=== PATIENT | female | born 1985 | race Caucasian/White ===

== ENCOUNTER 2018-01-11 12:13 | Emergency (ER) | payer OTHER ==
[2018-01-11 12:22] VITALS: BP 134/78
[2018-01-11 12:57] LABS: BILIRUBIN,URINE NEGATIVE (NEGATIVE); GLUCOSE, URINE (UA) NEGATIVE (NEGATIVE); KETONES,URINE (UA) NEGATIVE (NEGATIVE); LEUKOCYTE ESTERASE, URINE TRACE (NEGATIVE); NITRITE,URINE POSITIVE (NEGATIVE); OCCULT BLOOD,URINE NEGATIVE (NEGATIVE); PH,URINE 5.5 PH (5.0-7.5); PROTEIN,URINE TRACE mg/dL (NEGATIVE); UROBILINOGEN,URINE 1 (NORMAL) E.U./dL (NORMAL)
[2018-01-11 12:59] LABS: CLARITY,URINE CLEAR (CLEAR); HCG UR QUAL NEGATIVE
[2018-01-11 13:30] LABS: BACTERIA,URINE Rare /HPF (None Seen); RBC,URINE 0-5 /HPF (0-5); SQUAMOUS EPITHELIAL CELL,UR RARE Squamous (<= Few); WBC CLUMPS,URINE PRESENT
--- NOTE | 2018-01-11 13:42 | ED Physician Documentation ---
PD HPI FEMALE - Stated complaint Stated Complaint: FEMALE /CHILLS/NAUSEA - Chief complaint Chief Complaint: Abd Pain - History obtained from History obtained from: Patient, Family - History of Present Illness Timing - onset: How many days ago (4) Timing - duration: Days (4) Timing - details: Gradual onset, Still present Associated symptoms: Dysuria, Urinary frequency. No: Vaginal discharge Contributing factors: No: Similar symptoms before: Diagnosis (UTI/bv/yeast) Recently seen: Not recently seen - Additional information Additional information: 32-year-old female who is trying to get has developed urinary urgency frequency and dysuria over the past 4 days. She has some chills associated with this she does not have any overt fever she had some mild nausea she has not vomited and she does have some nasal congestion cough and ear pain. Review of Systems Constitutional: reports: Chills, Fatigue. denies: Fever Eyes: denies: Decreased vision Ears: reports: Ear pain Nose: reports: Rhinorrhea / runny nose, Congestion Throat: denies: Sore throat Cardiac: denies: Chest pain / pressure, Palpitations Respiratory: reports: Cough. denies: Dyspnea GI: reports: Abdominal Pain, Nausea. 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 - Present Medications Home Medications: Ambulatory Orders Medication Instructions Recorded Confirmed Amox/Clav 875/125 [Augmentin] 1 each PO Q12H #14 tablet 01/11/18 Pnv No.122/Iron/Folic Acid 1 each PO DAILY 01/11/18 01/11/18 [ Multi Tablet] - Allergies Allergies/Adverse Reactions: Allergies Allergy/AdvReac Type Severity Reaction Status Date / Time No Known Drug Allergies Allergy Verified 01/11/18 12:22 - Social History Does the pt smoke?: No Smoking Status: Never smoker Does the pt drink ETOH?: No Does the pt have substance abuse?: No PD ED PE NORMAL - Vitals Vital signs reviewed: Yes (hypertensive ) - General General: Alert and oriented X 3, No acute distress, Well developed/nourished - HEENT HEENT: Atraumatic, PERRL, EOMI, Other (The right TM is inflamed with rounding of the umbo and the left is minimally inflamed. ) - Neck Neck: Supple, no meningeal sign, No bony TTP - Cardiac Cardiac: RRR, No murmur - Respiratory Respiratory: No respiratory distress, Clear bilaterally - Abdomen Abdomen: Soft, Non tender - Back Back: No CVA TTP, No spinal TTP - Derm Derm: Normal color, Warm and dry, No rash - Extremities Extremities: No deformity, No edema - Neuro Neuro: Alert and oriented X 3, mortgage analyst 2-12 intact, No motor deficit, No sensory d eficit, Normal speech Eye Opening: Spontaneous Motor: Obeys Commands Verbal: Oriented GCS Score: 15 - Psych Psych: Normal mood, Normal affect Results - Vitals Vitals: Vital Signs - 24 hr 01/11/18 12:18 Temperature 36.5 C Heart Rate 95 Respiratory 18 Rate Blood Pressure 134/78 H O2 Saturation 98 Oxygen O2 Source Room air - Labs Labs: Laboratory Tests 01/11/18 12:24 Urine Color ORANGE Urine Clarity CLEAR Urine pH 5.5 Ur Specific [place] 1.010 Urine Protein TRACE Urine Glucose (UA) NEGATIVE Urine Ketones NEGATIVE Urine Occult Blood NEGATIVE Urine Nitrite POSITIVE H Urine Bilirubin NEGATIVE Urine Urobilinogen 1 (NORMAL) Ur Leukocyte Esterase TRACE H Urine RBC 0-5 Urine WBC >25 H Urine WBC Clumps PRESENT Ur Squamous Epith Cells RARE Squamous Urine Bacteria Rare Ur Microscopic Review INDICATED Urine Culture Comments INDICATED Urine HCG, Qual NEGATIVE PD MEDICAL DECISION MAKING - ED course Complexity details: reviewed results, re-evaluated patient, considered differential, d/w patient, d/w family ED course: 32-year-old female with symptoms of chills urinary urgency and frequency has urinary tract infection on examination she does not have any flank tenderness and she does have right otitis on exam. Departure - Departure Disposition: 01 Home, Self Care Clinical Impression: Urinary tract infection Qualifiers: Urinary tract infection type: acute cystitis Hematuria presence: without hematuria Qualified Code(s): N30.00 - Acute cystitis without hematuria Otitis media Qualifiers: Otitis media type: suppurative Chronicity: acute Laterality: right Recurrence: not specified as recurrent Spontaneous tympanic membrane rupture: without spontaneous rupture Qualified Code(s): H66.001 - Acute suppurative otitis media without spontaneous rupture of ear drum, right ear Instructions: ED UTI Cystitis Female, ED Otitis Media Acute Adult [facility] Prescriptions: Amox/Clav 875/125 [Augmentin] 1 each PO Q12H #14 tablet
== END 2018-01-11 14:00 | disposition home or self-care (01) ==
LOC: ED 12:13
DX: N30.00 Acute cystitis without hematuria (principal); H66.001 Acute suppurative otitis media without spontaneous rupture of ear drum, right ear
CPT/HCPCS: 81001; 81003; 81025; 87086; 99283

== ENCOUNTER 2018-01-30 09:51 | Emergency (ER) | payer OTHER ==
[2018-01-30 12:17] LABS: BILIRUBIN,URINE NEGATIVE (NEGATIVE); GLUCOSE, URINE (UA) NEGATIVE (NEGATIVE); KETONES,URINE (UA) NEGATIVE (NEGATIVE); LEUKOCYTE ESTERASE, URINE NEGATIVE (NEGATIVE); NITRITE,URINE NEGATIVE (NEGATIVE); OCCULT BLOOD,URINE NEGATIVE (NEGATIVE); PROTEIN,URINE NEGATIVE (NEGATIVE); UROBILINOGEN,URINE 0.2 (NORMAL) E.U./dL (NORMAL)
[2018-01-30 12:19] LABS: CLARITY,URINE CLEAR (CLEAR); HCG UR QUAL NEGATIVE
--- NOTE | 2018-01-30 14:41 | ED Physician Documentation ---
History of Present Illness - Stated complaint Stated Complaint: FEMALE - Chief complaint Chief Complaint: General - History obtained from History obtained from: Patient - History of Present Illness Timing: Today Pain level max: 4 Pain level now: 4 - Additonal information Additional information: Patient is a 32-year-old female who is trying to get with her , she states that she has had intermittent pelvic pain once a month for the past 6 months. Has been treated for bacterial vaginitis, yeast infection, and UTIs. States she started having burning and pain with urination again yesterday. Also noted clear/bloody vaginal discharge. Also had light vaginal bleeding after her menses a few days ago. Has lower abdominal cramping. Each time the symptoms cleared with treatment. 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 - Present Medications Home Medications: Ambulatory Orders Medication Instructions Recorded Confirmed No Known Home Medications 01/30/18 01/30/18 - Allergies Allergies/Adverse Reactions: Allergies Allergy/AdvReac Type Severity Reaction Status Date / Time No Known Drug Allergies Allergy Verified 01/30/18 10:16 - Social History Does the pt smoke?: No Smoking Status: Never smoker Does the pt drink ETOH?: No Does the pt have substance abuse?: No - Immunizations Immunizations are current?: Yes PD ED PE NORMAL - Vitals Vital signs reviewed: Yes - General General: Alert and oriented X 3, No acute distress - HEENT HEENT: Moist mucous membranes - Neck Neck: Supple, no meningeal sign - Cardiac Cardiac: RRR - Respiratory Respiratory: No respiratory distress, Clear bilaterally - Abdomen Abdomen: Soft, Non tender, Non distended - Female Female : Deburrer present (Sharlene RN), Other (normal external exam, internal exam with clear/blood tinged d/c. otherwise normal.) - Back Back: No CVA TTP, No spinal TTP - Derm Derm: Warm and dry - Neuro Neuro: Alert and oriented X 3 Results - Vitals Vitals: Vital Signs - 24 hr 12/24/18 12/24/18 10:12 14:47 Temperature 36.4 C L 36.6 C Heart Rate 83 82 Respiratory 12 17 Rate Blood Pressure 110/73 115/74 O2 Saturation 100 99 Oxygen O2 Source Room air - Labs Labs: Microbiology 01/30/18 14:30 LIZA Preparation - Final Other - Vaginal 01/30/18 14:30 Wet Prep - Final Vaginal Laboratory Tests 01/30/18 10:25 Urine Color YELLOW Urine Clarity CLEAR Urine pH 6.0 Ur Specific [place] <=1.005 Urine Protein NEGATIVE Urine Glucose (UA) NEGATIVE Urine Ketones NEGATIVE Urine Occult Blood NEGATIVE Urine Nitrite NEGATIVE Urine Bilirubin NEGATIVE Urine Urobilinogen 0.2 (NORMAL) Ur Leukocyte Esterase NEGATIVE Ur Microscopic Review NOT INDICATED Urine Culture Comments NOT INDICATED Urine HCG, Qual NEGATIVE PD MEDICAL DECISION MAKING - ED course Complexity details: reviewed old records, reviewed results, re-evaluated chloe ent, considered differential, d/w patient ED course: 32-year-old female with dysuria and pelvic pain of uncertain etiology. Negative testing here. [place] likely be referred to gynecology is that these symptoms are occurring monthly for her. Patient is well-appearing, nontoxic. Gonorrhea and Chlamydia testing were sent. Patient counseled regarding signs and symptoms for which I believe and urgent re-evaluation would be necessary. Patient with good understanding of and agreement to plan and is comfortable going home at this time This document was made in part using voice recognition software. While efforts are made to proofread this document, sound alike and grammatical errors may occur. Departure - Departure Disposition: 01 Home, Self Care Clinical Impression: Dysuria, Pelvic pain Condition: Good Instructions: ED Dysuria Uncertain Cause Follow-Up: your,doctor in 1 week [Other] Karla Rey MD [Provider Admit Priv/Credential] - Within 1 week Comments: Your tests are normal today. The cause of your symptoms is unclear. You should follow-up with your doctor for further evaluation and likely referral to gy necology. Discharge Date/Time: 01/30/18 16:00
[2018-01-30 14:47] VITALS: BP 115/74
== END 2018-01-30 16:00 | disposition home or self-care (01) ==
LOC: ED 09:51
DX: R10.2 Pelvic and perineal pain (principal); R30.0 Dysuria
CPT/HCPCS: 81001; 81003; 81025; 87086; 87210; 87220; 87491; 87591; 99282; 99283

== ENCOUNTER 2019-02-02 17:46 | Emergency (ER) | payer OTHER ==
[2019-02-02 18:16] VITALS: BP 125/77
--- NOTE | 2019-02-02 18:58 | ED Physician Documentation ---
History of Present Illness - Stated complaint Stated Complaint: STITCHES CAME UNDONE - Chief complaint Chief Complaint: Laceration - Additonal information Additional information: This is a 33-year-old female who presents with reopened wound. She had several moles removed 1 week ago when she had a stitch removal today, she went home and when she smiled the wound split open. She had a little bit of bleeding from the wound. She not noticed any signs of infection. 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 - Present Medications Home Medications: Ambulatory Orders Medication Instructions Recorded Confirmed No Known Home Medications 01/30/18 01/30/18 - Allergies Allergies/Adverse Reactions: Allergies Allergy/AdvReac Type Severity Reaction Status Date / Time No Known Drug Allergies Allergy Verified 01/30/18 10:16 - Social History Does the pt smoke?: No Smoking Status: Never smoker Does the pt drink ETOH?: No Does the pt have substance abuse?: No - Immunizations Immunizations are current?: Yes - POLST Patient has POLST: No PD ED PE NORMAL - General General: Alert and oriented X 3 - HEENT HEENT: Other (There is a 1 cm elliptical laceration on the left cheek. No surrounding erythema. No purulent drainage) - Neck Neck: Other (Normal range of motion) - Respiratory Respiratory: No respiratory distress - Neuro Neuro: Alert and oriented X 3 Results - Vitals Vitals: Vital Signs - 24 hr 02/02/19 18:14 Temperature 36.8 C Heart Rate 74 Respiratory 18 Rate Blood Pressure 125/77 O2 Saturation 99 Oxygen O2 Source Room air Procedures - Laceration (location) Face Length in cm: 1 Wound type: Linear Anesthesia: Lidocaine 1% Skin layer closure: Prolene, Size #-0 - enter number (6), Sutures - enter # (2) Other: Patient tolerated well, No complications Complexity: Simple PD MEDICAL DECISION MAKING - ED course ED course: Patient presents with a laceration is split open. The wound appears normal and uninfected. I discussed the options of treatment, and we decided on replacing the sutures given it has quite a bit tension on the area and we are unlikely to get a good closure with Steri-Strips or skin glue. Two 6-0 sutures were placed as noted in the procedure note above, the cosmetic result was very good. I discussed techniques for scar minimization, return precautions, and follow-up for suture removal in 5 days which time Steri-Strips to be placed on the wound for extra strength. Patient was discharged home Departure - Departure Disposition: 01 Home, Self Care Clinical Impression: Wound dehiscence Condition: Good Instructions: ED Laceration All Follow-Up: BRIAN GARCIA [Primary Care Provider] - (In 5 days for suture removal) Comments: You were seen today because your wound split open. I put in some new stitches and they should be removed in 5 days -when they are removed please have the provider put a Steri-Strip across the wound to add more strength. Keep a thin layer of Vaseline over the wound to help prevent scabbing and reduce scarring. They may consider using skin glue as well. If you develop signs of infection return to the emergency department.
[2019-02-02] MEDS ORDERED: LIDOCAINE 1% 2 ML VIAL SUBQ STA (19:07)
== END 2019-02-02 19:31 | disposition home or self-care (01) ==
LOC: ED 17:46
DX: T81.31XA Disruption of external operation (surgical) wound, not elsewhere classified, initial encounter (principal); Y83.8 Other surgical procedures as the cause of abnormal reaction of the patient, or of later complication, without mention of misadventure at the time of the procedure
CPT/HCPCS: 12011; 99283

== ENCOUNTER 2020-01-27 08:45 | Emergency (ER) | payer OTHER ==
[2020-01-27 09:31] LABS: BILIRUBIN,URINE NEGATIVE (NEGATIVE); GLUCOSE, URINE (UA) NEGATIVE (NEGATIVE); KETONES,URINE (UA) NEGATIVE (NEGATIVE); LEUKOCYTE ESTERASE, URINE SMALL (NEGATIVE); NITRITE,URINE NEGATIVE (NEGATIVE); OCCULT BLOOD,URINE TRACE-INTA (NEGATIVE); PROTEIN,URINE NEGATIVE (NEGATIVE); UROBILINOGEN,URINE 0.2 (NORMAL) E.U./dL (NORMAL)
[2020-01-27 09:39] LABS: CLARITY,URINE CLEAR (CLEAR); HCG UR QUAL NEGATIVE
[2020-01-27 09:46] LABS: BACTERIA,URINE Rare /HPF (None Seen); RBC,URINE 0-5 /HPF (0-5); SQUAMOUS EPITHELIAL CELL,UR MOD Squamous (<= Few)
--- NOTE | 2020-01-27 10:09 | ED Physician Documentation ---
PD HPI FEMALE - Stated complaint Stated Complaint: FEMALE - Chief complaint Chief Complaint: UTI - History obtained from History obtained from: Patient - History of Present Illness Timing - onset: How many days ago (2) Timing - duration: Days (2) Timing - details: Gradual onset, Still present Associated symptoms: Dysuria, Urinary frequency. 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 She denies any back pain she denies any nausea associated with this she denies any pelvic pain she denies any discharge. She denies any concerns about sexually transmitted diseases. She denies any blisters or sores on her genitalia. 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 - Present Medications Home Medications: Ambulatory Orders Medication Instructions Recorded Confirmed Nitrofurantoin Monohyd/M-Cryst 100 mg PO BID #10 capsule 01/27/20 [Macrobid 100 mg Capsule] - Allergies Allergies/Adverse Reactions: Allergies Allergy/AdvReac Type Severity Reaction Status Date / Time No Known Drug Allergies Allergy Verified 01/27/20 08:55 - Social History Does the pt smoke?: No Smoking Status: Never smoker Does the pt drink ETOH?: No Does the pt have substance abuse?: No - Immunizations Immunizations are current?: Yes - POLST Patient has POLST: No PD ED PE NORMAL - Vitals Vital signs reviewed: Yes (Tachycardic) - General General: Alert and oriented X 3, No acute distress, Well developed/nourished - HEENT HEENT: Atraumatic, PERRL, EOMI - Neck Neck: Supple, no meningeal sign - Respiratory Respiratory: No respiratory distress - Abdomen Abdomen: Soft, Non tender, Non distended, No organomegaly - Back Back: No CVA TTP, No spinal TTP - Derm Derm: Normal color, Warm and dry, No rash - Extremities Extremities: No deformity, No edema - Neuro Neuro: Alert and oriented X 3, camp head counselor 2-12 intact, No motor deficit, No sensory deficit, Normal speech Eye Opening: Spontaneous Motor: Obeys Commands Verbal: Oriented GCS Score: 15 - Psych Psych: Normal mood, Normal affect Results - Vitals Vitals: Vital Signs - 24 hr 01/27/20 08:54 Temperature 35.8 C L Heart Rate 102 H Respiratory 16 Rate Blood Pressure 123/69 O2 Saturation 99 Oxygen O2 Source Room air - Labs Labs: Laboratory Tests 01/27/20 09:20 Urine Color YELLOW Urine Clarity CLEAR Urine pH 6.0 Ur Specific [place] <=1.005 Urine Protein NEGATIVE Urine Glucose (UA) NEGATIVE Urine Ketones NEGATIVE Urine Occult Blood TRACE-INTA Urine Nitrite NEGATIVE Urine Bilirubin NEGATIVE Urine Urobilinogen 0.2 (NORMAL) Ur Leukocyte Esterase SMALL H Urine RBC 0-5 Urine WBC 4-5 Ur Squamous Epith Cells MOD Squamous H Urine Bacteria Rare Ur Microscopic Review INDICATED Urine Culture Comments NOT INDICATED Urine HCG, Qual NEGATIVE PD MEDICAL DECISION MAKING - ED course Complexity details: reviewed old records, reviewed results, re-evaluated patient, considered differential, d/w patient ED course: 32-year-old female with a prior history of urinary tract infection has symptoms again consistent with urinary tract infection for the past 2 days. Today her urine does show leukocyte esterase and some bacteria in the urine but there is not much in the way of leukocytes in the urine and there were 2 many squamous cells to make great for culture. We will treat the patient empirically and expect resolution of symptoms. She will follow up for nonresolution. Departure - Departure Disposition: 01 Home, Self Care Clinical Impression: Urinary tract infection Qualifiers: Urinary tract infection type: acute cystitis Hematuria presence: with hematuria Qualified Code(s): N30.01 - Acute cystitis with hematuria Condition: Stable Instructions: ED UTI Cystitis Female Follow-Up: BRIAN GARCIA [Primary Care Provider] - Prescriptions: Nitrofurantoin Monohyd/M-Cryst [Macrobid 100 mg Capsule] 100 mg PO BID #10 capsule
[2020-01-27 10:19] VITALS: BP 122/74
== END 2020-01-27 10:18 | disposition home or self-care (01) ==
LOC: ED 08:45
DX: N30.01 Acute cystitis with hematuria (principal)
CPT/HCPCS: 81001; 81003; 81025; 87086; 99283; 99284

== ENCOUNTER 2020-05-23 07:05 | Emergency (ER) | payer OTHER ==
[2020-05-23 07:12] VITALS: BP 118/65
[2020-05-23 07:24] LABS: BILIRUBIN,URINE NEGATIVE (NEGATIVE); GLUCOSE, URINE (UA) NEGATIVE (NEGATIVE); KETONES,URINE (UA) NEGATIVE (NEGATIVE); LEUKOCYTE ESTERASE, URINE TRACE (NEGATIVE); NITRITE,URINE NEGATIVE (NEGATIVE); OCCULT BLOOD,URINE NEGATIVE (NEGATIVE); PH,URINE 6.5 PH (5.0-7.5); PROTEIN,URINE NEGATIVE (NEGATIVE); UROBILINOGEN,URINE 0.2 (NORMAL) E.U./dL (NORMAL)
[2020-05-23 07:26] LABS: CLARITY,URINE CLEAR (CLEAR)
--- NOTE | 2020-05-23 07:26 | ED Physician Documentation ---
PD HPI FEMALE - Stated complaint Stated Complaint: FEMAL - Chief complaint Chief Complaint: UTI - History obtained from History obtained from: Patient - History of Present Illness Timing - onset: Yesterday Timing - duration: Days (1) Timing - details: Abrupt onset, Still present Associated symptoms: Dysuria, Urinary frequency. No: Fever, Vaginal bleeding, Vaginal discharge Contributing factors: No: Similar symptoms before: Diagnosis (UTIs several times in the past 6 months.) Review of Systems Constitutional: denies: Fever, Chills, Myalgias Nose: denies: Rhinorrhea / runny nose, Congestion Throat: denies: Sore throat Respiratory: denies: Cough GI: denies: Abdominal Pain, Nausea, Vomiting, Diarrhea : reports: Dysuria, Frequency. 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 - Present Medications Home Medications: Ambulatory Orders Medication Instructions Recorded Confirmed Nitrofurantoin Monohyd/M-Cryst 100 mg PO BID #10 capsule 01/27/20 [Macrobid 100 mg Capsule] Phenazopyridine HCl [Pyridium] 100 mg PO TID PRN #15 tablet 05/23/20 Sulfamethox/Trimeth 800/160 1 each PO BID #10 tablet 05/23/20 [Bactrim Ds 800/160] - Allergies Allergies/Adverse Reactions: Allergies Allergy/AdvReac Type Severity Reaction Status Date / Time No Known Drug Allergies Allergy Verified 05/23/20 07:42 - Social History Does the pt smoke?: No Smoking Status: Never smoker Does the pt drink ETOH?: No Does the pt have substance abuse?: No - Immunizations Immunizations are current?: Yes - POLST Patient has POLST: No PD ED PE NORMAL - Vitals Vital signs reviewed: Yes - General General: Alert and oriented X 3, No acute distress, Well developed/nourished - Abdomen Abdomen: Soft, Non tender - Female Female : Deferred - Back Back: No CVA TTP - Derm Derm: Normal color, Warm and dry - Neuro Neuro: Alert and oriented X 3, No motor deficit, Normal speech Results - Vitals Vitals: Oxygen O2 Source Room air - Labs Labs: Microbiology 05/23/20 07:13 Urine Culture - Preliminary Urine,Clean Catch CULTURE IN PROGRESS. RESULTS TO FOLLOW. Laboratory Tests 05/23/20 07:13 Urine Color LIGHT YELLOW Urine Clarity CLEAR Urine pH 6.5 Ur Specific [place] <=1.005 Urine Protein NEGATIVE Urine Glucose (UA) NEGATIVE Urine Ketones NEGATIVE Urine Occult Blood NEGATIVE Urine Nitrite NEGATIVE Urine Bilirubin NEGATIVE Urine Urobilinogen 0.2 (NORMAL) Ur Leukocyte Esterase TRACE H Urine RBC 0-5 Urine WBC 0-3 Ur Squamous Epith Cells FEW Squamous Urine Bacteria Few Ur Microscopic Review INDICATED Urine Culture Comments INDICATED Urine HCG, Qual NEGATIVE PD MEDICAL DECISION MAKING - ED course Complexity details: reviewed results, considered differential, d/w patient Departure - Departure Disposition: 01 Home, Self Care Clinical Impression: Cystitis, Dysuria Condition: Stable Record reviewed to determine appropriate education?: Yes Instructions: ED UTI Cystitis Female Follow-Up: BRIAN GARCIA [Primary Care Provider] - Prescriptions: Sulfamethox/Trimeth 800/160 [Bactrim Ds 800/160] 1 each PO BID #10 tablet Phenazopyridine HCl [Pyridium] 100 mg PO TID PRN #15 tablet PRN Reason: Abdominal Pain Comments: Stay well hydrated. Bactrim DS twice daily for 5 days. You can add phenazopyridine to help with urinary discomfort. This will turn your urine little orange-colored. Tylenol or ibuprofen if needed for discomfort as well. Your urine test does show signs of infection and correlates with your symptoms. Follow-up with your primary care more particularly gynecology to discuss the frequent bladder infections and the idea of possible incomplete emptying to see if there is any other preventive treatments that might apply. Discharge Date/Time: 05/23/20 08:13
[2020-05-23 07:27] LABS: HCG UR QUAL NEGATIVE
--- OUTSIDE RECORDS SUMMARY | 2020-05-23 07:30 | EXTERNAL MEDICAL SUMMARY RPT | Continuity of Care Document ---
:1985 Demographics Phone Unavailable Preferred Language Unknown Marital Status Unknown Orthodoxy Affiliation Unknown Race Unknown Ethnic Group Unknown Author Organization [facility] Address [address] [place] [address] Phone Social History date description facility [phone]
[2020-05-23] MEDS ORDERED: PHENAZOPYRIDINE 100 MG TABLET PO STA (07:36)
[2020-05-23] MEDS ORDERED: SULFAMETH/TRIMETH DS 800/160 MG TABLET PO STA (07:36)
[2020-05-23 07:42] LABS: BACTERIA,URINE Few /HPF (None Seen); RBC,URINE 0-5 /HPF (0-5); SQUAMOUS EPITHELIAL CELL,UR FEW Squamous (<= Few); WBC,URINE 0-3 /HPF (0-5)
== END 2020-05-23 08:13 | disposition home or self-care (01) ==
LOC: ED 07:05
DX: N30.90 Cystitis, unspecified without hematuria (principal)
CPT/HCPCS: 81001; 81025; 87077; 87086; 99283; A9270; 81003